=== PATIENT | female | born 1995 | race Caucasian/White ===

== ENCOUNTER 2017-10-25 16:46 | Emergency (ER) | payer MEDICAID ==
[~2017-10-25] VITALS: Ht 157.5 cm; Wt 54.4 kg
[2017-10-25 16:46] VITALS: BP_SYST 108
== END 2017-10-25 17:29 | disposition home or self-care (01) ==
LOC: SED 16:46
DX: S01.411A Laceration without foreign body of right cheek and temporomandibular area, initial encounter (principal); X58.XXXA Exposure to other specified factors, initial encounter; Y93.89 Activity, other specified; Y92.89 Other specified places as the place of occurrence of the external cause; Y99.8 Other external cause status
CPT/HCPCS: 99283